=== PATIENT | female | born 1975 | race Caucasian/White ===

== ENCOUNTER 2019-11-18 18:02 | Emergency (ER) | payer OTHER ==
[~2019-11-18] VITALS: Ht 154.9 cm; Wt 68.0 kg
[2019-11-18 18:10] VITALS: BP_SYST 139
[2019-11-18] MEDS ORDERED: ONDANSETRON 4 MG ODT TAB PO ONE (18:45)
[2019-11-18] MEDS ORDERED: KETOROLAC TROMETHAMINE 60 MG/2 ML VIAL IM ONE (19:30)
[2019-11-18] MEDS ORDERED: DIPHENHYDRAMINE INJ 50 MG/ML VIAL IM ONE (21:00)
[2019-11-18] MEDS ORDERED: MORPHINE SULFATE 10 MG/ML VIAL IM ONE (21:00)
[2019-11-18 21:18] VITALS: BP_SYST 108
== END 2019-11-18 21:18 | disposition home or self-care (01) ==
LOC: SED 18:02
DX: M54.2 Cervicalgia (principal); R51 Headache
CPT/HCPCS: 70450; 71045; 72040; 81025; 96372; 99284; J1200; J1885; J2270; Q0162